=== PATIENT | male | born 1940 | race Caucasian/White ===

== ENCOUNTER 2024-09-03 06:42 | Inpatient (IN) | payer BC, OTHER ==
[~2024-09-03] VITALS: Ht 170.2 cm; Wt 77.1 kg
[2024-09-03 07:00] VITALS: BP 119/52; PULSE 58; RESP 18; TEMP 98.5; O2SAT 98
[2024-09-03 09:43] LABS: BASOPHILS % (AUTO) 0.5 % (0.0-2.0); EOSINOPHILS # (AUTO) 0.3 K/uL (0-0.4); EOSINOPHILS % (AUTO) 2.9 % (0.0-4.0); HEMATOCRIT 40.8 % (36-52); HEMOGLOBIN 13.5 g/dL (12.0-18.0); LYMPHOCYTES % (AUTO) 20.8 % (20.5-51.1); MEAN CORPUSCULAR HEMOGLOBIN 28 pg (27-31); MEAN CORPUSCULAR HGB CONC 33 g/dL (33-37); MEAN CORPUSCULAR VOLUME 85.6 fL (80-94); MONOCYTES # (AUTO) 0.8 K/uL (0.8-1.0); MONOCYTES % (AUTO) 8.5 % (1.7-9.3); NEUTROPHILS # (AUTO) 6.6 K/uL (1.8-7.7); NEUTROPHILS % (AUTO) 67.3 % (42.2-75.2); PLATELET COUNT (AUTO) 215 K/uL (140-450); RED BLOOD CELL COUNT(AUTO) 4.77 MIL/uL (4.20-6.10); RED CELL DISTRIBUTION WIDTH 13.8 % (11.6-13.7); WHITE BLOOD COUNT (AUTO) 9.7 K/uL (4.8-10.8)
[2024-09-03 09:50] LABS: APPEARANCE,URINE CLEAR (CLEAR); BILIRUBIN,URINE NEGATIVE (NEGATIVE); BLOOD, URINE NEGATIVE (NEGATIVE); COLOR,URINE YELLOW (YELLOW); LEUKOCYTE ESTERASE ,URINE NEGATIVE (NEGATIVE); NITRITE, URINE NEGATIVE (NEGATIVE); PH,URINE 6.5 (5.0-9.0); PROTEIN,URINE NEGATIVE (NEGATIVE); UGLUCOSE 3+ (NEGATIVE)
[2024-09-03 09:52] LABS: ANION GAP 10.5 (8-16); CALCIUM 8.7 mg/dL (8.5-10.1); CARBON DIOXIDE 31.1 mmol/L (21-32); CHLORIDE 103 mmol/L (98-107); CREATININE 0.7 mg/dL (0.6-1.3); GLUCOSE 123 mg/dL (74-106); POTASSIUM 3.6 mmol/L (3.5-5.1); SODIUM SERUM 141 mmol/L (136-145); UREA NITROGEN, BLOOD 15 mg/dL (7-18)
[2024-09-03 10:01] LABS: AMPHETAMINE, URINE NEGATIVE ng/ml (NEG <=1000); BARBITURATE, URINE NEGATIVE ng/ml (NEG <=200); BENZODIAZEPINE, URINE NEGATIVE ng/mL (NEG <=200); CANNABINOID, URINE NEGATIVE ng/mL (NEG <=50); COCAINE, URINE NEGATIVE ng/mL (NEG <=300); OPIATE, URINE NEGATIVE ng/mL (NEG <=2000); PHENCYCLIDINE SCREEN,URINE NEGATIVE ng/mL (NEG <=25)
[2024-09-03 10:21] LABS: CREATINE KINASE, TOTAL 81 U/L (39-308)
[2024-09-03] MEDS: ASPIRIN 81 MG TAB.CHEW PO ONE (10:37)
[2024-09-03] MEDS ORDERED: CARV12.5 PO (11:42)
[2024-09-03] MEDS ORDERED: ATOR20TA PO (11:42)
[2024-09-03] MEDS ORDERED: DAPA10TA PO (11:44)
[2024-09-03] MEDS ORDERED: FURO20TA8 PO (11:45)
[2024-09-03] MEDS ORDERED: GLIP5TAB22 PO (11:48)
[2024-09-03] MEDS ORDERED: METF-1253 PO (11:48)
[2024-09-03] MEDS ORDERED: NYST-71 TP (11:50)
[2024-09-03] MEDS ORDERED: TRAZ-343 PO (11:52)
[2024-09-03] MEDS ORDERED: RISP0.5T3 PO (11:56)
[2024-09-03 16:00] VITALS: BP 145/54; PULSE 53; PULSE 56; RESP 18; TEMP 96.9; O2SAT 96
[2024-09-03 20:00] VITALS: BP_SYST 0; PULSE 60; RESP 0; RESP 22; O2SAT 0
[2024-09-04] VITALS (7 sets, daily range): BP systolic 118–150; BP diastolic 50–76; PULSE 56–93; RESP 0–20; TEMP 97–98.4; O2SAT 0–98
[2024-09-04] MEDS ORDERED: ONDANSETRON 4 MG/2 ML VIAL IVP PRN (13:45)
[2024-09-04] MEDS ORDERED: HYDROcodone/APAP 5/325 MG 1 TAB TAB PO PRN (13:45)
[2024-09-04] MEDS ORDERED: MORPHINE SULFATE 2 MG/ML SYR IVP PRN (13:45)
[2024-09-04] MEDS ORDERED: DEXTROSE 50% 50 ML SYR IVP PRN (13:50)
[2024-09-04] MEDS: BLOOD GLUCOSE MONITORING 1 DEV DEV FS SCH (16:30)
[2024-09-04] MEDS: INSULIN LISPRO SLIDING SCALE 100 UNITS/ML VIAL SUBQ PRN (17:49)
[2024-09-04] MEDS: carvediloL 12.5 MG TAB PO SCH (22:00)
[2024-09-04] MEDS: traZODone 50 MG TAB PO SCH (22:00)
[2024-09-04] MEDS: risperiDONE 1 MG TAB PO SCH (22:01)
[2024-09-05] VITALS: PULSE 80
[2024-09-05] MEDS: HYDRAGUARD CREAM TP ONE (00:54)
[2024-09-05] MEDS: ACETAMINOPHEN 325 MG TAB PO PRN (01:14)
[2024-09-05 04:00] VITALS: PULSE 78; RESP 18
[2024-09-05 05:42] LABS: BASOPHILS % (AUTO) 0.4 % (0.0-2.0); EOSINOPHILS # (AUTO) 0.1 K/uL (0-0.4); EOSINOPHILS % (AUTO) 1.3 % (0.0-4.0); HEMATOCRIT 39.9 % (36-52); HEMOGLOBIN 13.4 g/dL (12.0-18.0); LYMPHOCYTES % (AUTO) 18.9 % (20.5-51.1); MEAN CORPUSCULAR HEMOGLOBIN 28 pg (27-31); MEAN CORPUSCULAR HGB CONC 34 g/dL (33-37); MEAN CORPUSCULAR VOLUME 84.8 fL (80-94); MONOCYTES % (AUTO) 9.4 % (1.7-9.3); NEUTROPHILS # (AUTO) 7.6 K/uL (1.8-7.7); PLATELET COUNT (AUTO) 214 K/uL (140-450); RED BLOOD CELL COUNT(AUTO) 4.71 MIL/uL (4.20-6.10); RED CELL DISTRIBUTION WIDTH 13.5 % (11.6-13.7); WHITE BLOOD COUNT (AUTO) 10.9 K/uL (4.8-10.8)
[2024-09-05 06:31] LABS: ALANINE AMINOTRANSFERASE 15 U/L (12-78); ALBUMIN 2.7 g/dL (3.4-5.0); ALKALINE PHOSPHATASE 95 U/L (50-136); ANION GAP 11.7 (8-16); ASPARTATE AMINOTRANSFERASE 12 U/L (15-37); CALCIUM 8.4 mg/dL (8.5-10.1); CARBON DIOXIDE 26.1 mmol/L (21-32); CHLORIDE 102 mmol/L (98-107); CREATININE 0.8 mg/dL (0.6-1.3); GLUCOSE 204 mg/dL (74-106); MAGNESIUM 1.8 mg/dL (1.8-2.4); POTASSIUM 3.8 mmol/L (3.5-5.1); SODIUM SERUM 136 mmol/L (136-145); TOTAL BILIRUBIN 0.5 mg/dL (0.0-1.0); TOTAL PROTEIN, SERUM 6.3 g/dL (6.4-8.2); UREA NITROGEN, BLOOD 16 mg/dL (7-18)
[2024-09-05] MEDS: HYDRAGUARD CREAM TP PRN (06:36)
[2024-09-05 08:00] VITALS: BP 104/64; PULSE 68; PULSE 74; PULSE 82; RESP 16; RESP 19; TEMP 97.9; O2SAT 21; O2SAT 96
[2024-09-05] MEDS: ATORVASTATIN 20 MG TAB PO SCH (09:02)
[2024-09-05] MEDS: ASPIRIN 81 MG TAB.CHEW PO SCH (09:02)
[2024-09-05] MEDS: ENOXAPARIN 40 MG/0.4 ML SYR SUBQ SCH (09:03)
[2024-09-05] MEDS ORDERED: oxyCODONE 10 MG TABER PO PRN (11:05)
[2024-09-05 11:25] VITALS: O2SAT 96
[2024-09-05] MEDS ORDERED: ASPI81CT95 PO (11:37)
[2024-09-05 12:00] VITALS: BP 106/44; PULSE 64; PULSE 68; RESP 18; TEMP 97.7; O2SAT 96
== END 2024-09-05 19:10 | disposition home or self-care (01) | DRG 73 ==
LOC: MED 06:42 → EDBD 06:42 → OBSVTOIN 13:59 → MTU 13:59
PROVIDERS: ADMIT Internal Medicine; ATTEND Internal Medicine
DX: G90.89 Other disorders of autonomic nervous system (principal); I21.A1 Myocardial infarction type 2; E44.0 Moderate protein-calorie malnutrition; R79.89 Other specified abnormal findings of blood chemistry; E11.9 Type 2 diabetes mellitus without complications; F03.90 Unspecified dementia, unspecified severity, without behavioral disturbance, psychotic disturbance, mood disturbance, and anxiety; I10 Essential (primary) hypertension; E78.5 Hyperlipidemia, unspecified; Z79.899 Other long term (current) drug therapy; Z68.26 Body mass index [BMI] 26.0-26.9, adult; I11.9 Hypertensive heart disease without heart failure
CPT/HCPCS: 36415; 70450; 71045; 72170; 80048; 80053; 80305; 81003; 82550; 82948; 83735; 84484; 85025; 87081; 93005; 97116; 97163-GP; 99285; J1650; J1815